=== PATIENT | female | born 1965 | race Two or more races ===

== ENCOUNTER 2025-07-01 05:01 | Emergency (ER) | payer OTHER, BC ==
[~2025-07-01] VITALS: Ht 149.9 cm; Wt 55.1 kg
[2025-07-01] MEDS ORDERED: ONDANSETRON HCL/PF 4 MG/2 ML VIAL ONE (05:18)
[2025-07-01] MEDS ORDERED: MORPHINE SULFATE INJ 4 MG/ML DISP.SYRIN ONE (05:19)
[2025-07-01] MEDS ORDERED: TAMSULOSIN 0.4 MG CAP.SR.24H ONE (05:19)
[2025-07-01] MEDS: IV NS 0.9% 1,000 ML BAG IV ONE (05:23)
[2025-07-01] MEDS: MORPHINE SULFATE INJ 2 MG/ML DISP.SYRIN IV ONE (05:23)
[2025-07-01] MEDS: ONDANSETRON HCL/PF 4 MG/2 ML VIAL IV ONE (05:23)
[2025-07-01 05:26] LABS: PLATELET COUNT (AUTO) 252 K/uL (150-450); RED BLOOD CELL COUNT(AUTO) 4.52 MIL/uL (4.0-5.2); RED CELL DISTRIBUTION WIDTH 12.5 % (11.5-15.0); WHITE BLOOD COUNT (AUTO) 6.6 K/uL (4.3-11.0)
[2025-07-01 05:38] LABS: ASPARTATE AMINOTRANSFERASE 20.0 U/L (15-37); CALCIUM, SERUM 9.0 mg/dL (8.5-10.1); CREATININE 0.8 mg/dL (0.6-1.3); SODIUM SERUM 143.0 mmol/L (136-145); TOTAL PROTEIN, SERUM 7.7 g/dL (6.4-8.2); UREA NITROGEN, BLOOD 18.0 mg/dL (7-18)
[2025-07-01] MEDS: TAMSULOSIN 0.4 MG CAP.SR.24H PO ONE (05:51)
[2025-07-01 06:21] LABS: APPEARANCE,URINE CLEAR (CLEAR); BLOOD, URINE 3+ Ery/uL (NEGATIVE); LEUKOCYTE ESTERASE ,URINE NEGATIVE (NEGATIVE); NITRITE, URINE NEGATIVE (NEGATIVE); UGLUCOSE TRACE mg/dL (NEGATIVE)
[2025-07-01 06:40] LABS: ADD URINE CULTURE NO; SQUAMOUS EPITHELIAL CELL,UR Few /HPF (None Seen)
[2025-07-01] MEDS ORDERED: METOCLOPRAMIDE HCL 10 MG/2 ML VIAL ONE (06:47)
[2025-07-01] MEDS ORDERED: KETOROLAC TROMETHAMINE INJ 30 MG/ML VIAL ONE (06:47)
[2025-07-01] MEDS: METOCLOPRAMIDE HCL 10 MG/2 ML VIAL IV ONE (06:53)
[2025-07-01] MEDS: KETOROLAC TROMETHAMINE INJ 30 MG/ML VIAL IV ONE (06:53)
[2025-07-01] MEDS ORDERED: TAMS-12 PO (08:37)
[2025-07-01] MEDS ORDERED: ONDA4TAB5 PO (08:37)
[2025-07-01] MEDS ORDERED: KETO10TA2 PO (08:37)
[2025-07-01 09:09] VITALS: BP 128/79; TEMP 98.2; O2SAT 96
== END 2025-07-01 09:09 | disposition home or self-care (01) ==
LOC: ER 05:04
DX: R10.A1 Flank pain, right side (principal); R11.2 Nausea with vomiting, unspecified; Z88.0 Allergy status to penicillin; Z87.442 Personal history of urinary calculi; Z87.19 Personal history of other diseases of the digestive system; Z79.899 Other long term (current) drug therapy
CPT/HCPCS: 99285; 74176; 96374; 96375; 96361; 84145; 85025; 83735; 81001; 36415; 80053; 86140; J1885; J1200; J2270; J2765; J2405; J7030